=== PATIENT | female | born 1980 | race Caucasian/White ===

== ENCOUNTER → 2023-11-13 09:23 | Outpatient (CLI) | payer OTHER, SELFPAY ==
[2023-11-13 20:10] LABS: Add Manual Diff / Slide Review NO; Basophils Absolute Auto 0 /uL (0-100); Basophils Percent Auto 0.7 % (0-2); Eosinophils Absolute Auto 300 /uL (0-450); Eosinophils Percent Auto 4.3 % (2-4); Hematocrit 40.6 % (36-46); Hemoglobin 13.6 g/dL (12.0-16.0); Lymphocytes Absolute Auto 1500 /uL (1100-4500); Lymphocytes Percent Auto 21.8 % (25-40); Mean Corpuscular HGB Conc 33.5 % (30-36); Mean Corpuscular Hemoglobin 31.2 PG (26-34); Monocytes Absolute Auto 500 /uL (0-900); Monocytes Percent Auto 7.7 % (3-14); Neutrophils Absolute Auto 4500 /uL (1500-7000); Neutrophils Percent Auto 65.5 % (50-75); Platelet Count 292 X10^3/uL (150-400); Red Blood Cell Count 4.37 X10^6/uL (4.0-5.2); Red Cell Distribution Width 12.7 % (11.6-14.8); White Blood Cell Count 6.8 X10^3/uL (4.5-11.0)
[2023-11-13 20:16] LABS: HEMOLYSIS < 15 (0-50); Iron 111 ug/dL (37-170)
[2023-11-13 20:21] LABS: Alanine Aminotransferase 16 IU/L (<35); Albumin 4.1 g/dL (3.5-5.0); Albumin Globulin Ratio 1.4 (1.0-2.8); Alkaline Phosphatase 71 U/L (38-126); Aspartate Aminotransferase 28 IU/L (14-36); BUN Creatinine Ratio 22.2 (6-22); Bilirubin Total 0.7 mg/dL (0.2-1.3); Blood Urea Nitrogen 12 mg/dL (7-17); Carbon Dioxide 24 mmol/L (22-32); Chloride 104 mmol/L (98-107); Cholesterol 196 mg/dL (140-199); Estimated Glomerular Filt Rate > 60 mL/min (>60); Globulin 2.9 g/dL (1.7-4.1); Glucose 95 mg/dL (70-100); HDL Cholesterol 55 mg/dL (40-60); HEMOLYSIS 23 (0-50); LDL Cholesterol Calculated 124 mg/dL (<100); Potassium 4.3 mmol/L (3.4-5.1); Sodium 135 mmol/L (137-145); Triglycerides 87 mg/dL (35-150)
[2023-11-13 20:27] LABS: Percent Iron Saturation 40 % (15-50); Total Iron Binding Capacity 279 ug/dL (265-497); Transferrin 222 mg/dL (206-381)
[2023-11-13 20:50] LABS: TSH w/ Reflex to FT4 1.25 uIU/mL (0.47-4.68)
[2023-11-13 20:53] LABS: Ferritin 21 ng/mL (6-137)
== END ==
PROVIDERS: PCP Family Medicine; Visit Provider Family Medicine
DX: Z13.6 Encounter for screening for cardiovascular disorders (principal); Z13.1 Encounter for screening for diabetes mellitus; Z13.0 Encounter for screening for diseases of the blood and blood-forming organs and certain disorders involving the immune mechanism; N92.1 Excessive and frequent menstruation with irregular cycle; T78.40XA Allergy, unspecified, initial encounter
CPT/HCPCS: 80053; 80061; 82728; 83520; 83540; 83550; 84443; 85025

== ENCOUNTER → 2023-12-26 12:46 | Outpatient (CLI) | payer OTHER, SELFPAY ==
--- NOTE | 2023-12-26 12:48 | DI.MG.S_ITS ---
BILATERAL DIGITAL SCREENING MAMMOGRAM 3D/2D WITH CAD: 12/26/2023 CLINICAL: Routine screening. Baseline exam. No prior exams were available for comparison. Both breasts are heterogeneously dense, which may obscure small masses (category c / 51-75% glandular tissue). Current study was also evaluated with a Computer Aided Detection (CAD) system. No significant masses, calcifications, or other findings are seen in either breast. IMPRESSION: NEGATIVE There is no mammographic evidence of malignancy. A 1 year screening mammogram is recommended. Based on the Tyrer Cuzick model (a risk assessment model) the patient's lifetime risk is 14.7% and her 10 year risk is 2.7%. According to the ACR, ACS, and NCCN guidelines, an annual breast MRI exam along with mammogram is recommended if the patient's lifetime risk is 20% or greater. This exam was interpreted at Station ID: [id number]. NOTE: For mammograms, a report in lay terms will be sent to the patient. Approximately 15% of breast malignancies will not be visualized mammographically. In the management of a palpable breast mass, a negative mammogram must not discourage biopsy of a clinically suspicious lesion. Electronically Signed By: Kyara Benoit M.D., Ph.D. evita/roberta:12/26/2023 14:33:37 letter sent: Normal Exam ACR BI-RADS Category 1: Negative 3341F
--- NOTE | 2023-12-26 12:48 | DI.MRI.S_ITS ---
PROCEDURE: MR KNEE LT WO CON INDICATIONS: Persistent, chronic L knee pain and swelling TECHNIQUE: Noncontrast sagittal PD fast spin echo and T2 fast spin echo with fat saturation, sagittal 3-D FLASH with fat saturation; coronal T1 spin echo and PD fast spin echo with fat saturation, and axial PD fast spin echo with fat saturation through the knee. COMPARISON: [facility] [place], CR, XR KNEE 4+ VIEWS LEFT, 10/10/2023, 12:04. FINDINGS: Image quality: Excellent. Menisci: In the medial meniscus, there is intrasubstance degeneration of the meniscus body, with likely oblique tear. There is moderate extrusion of the medial meniscus body. The lateral meniscus is unremarkable. Cruciate ligaments: The anterior and posterior cruciate ligaments appear intact. Medial structures: The medial collateral ligament appears intact. The posterior oblique ligament, semimembranosus tendon insertions, oblique popliteal ligament, and meniscocapsular junction appear intact. Visualized portions of the pes anserinus tendons appear normal. No abnormal bursal fluid. Lateral structures: The lateral collateral ligament, long and short heads of the biceps femoris tendon appear intact. The popliteus tendon appears normal; the popliteofibular ligament appears intact. The posterosuperior and anteroinferior popliteomeniscal fascicles appear intact. The arcuate and fabellofibular ligaments appear intact, on either side of the lateral inferior geniculate artery. Iliotibial band appears normal. Anterior structures: The quadriceps and patellar tendons appear intact. Mild lateral tilt of the patella. Mild Hoffa's fat pad edema. Bones and cartilage: There is mild multi focal contour irregularity of the patella. Mild chondral irregularity of the medial trochlea with a small area of full thickness chondral defect in the lateral trochlea. In the medial compartment, there is full thickness chondral loss in the posterior weight-bearing portion of the femoral condyle. There is high-grade chondral loss in the anterior aspect of the nonweightbearing portion of the femoral condyle. In the lateral compartment, there is mild chondral irregularity of the weight-bearing portion of the femoral condyle. Mild subchondral cystic change and marrow edema at the tibial eminence, reactive . no acute fracture. Joint space: Small knee effusion. Trace popliteal cyst. Popliteal vasculature is unremarkable. No intra-articular body. IMPRESSION: 1. Intrasubstance degeneration of the medial meniscus body with likely oblique tear. Moderate extrusion of the medial meniscus body. 2. Moderate, medial compartment predominant chondrosis. 3. Small knee effusion. Dictated by: Evonne Jacobson M.D. on 12/26/2023 at 14:28 Approved by: Evonne Jacobson M.D. on 12/26/2023 at 14:39
== END ==
LOC: MRI 12:47
PROVIDERS: PCP Family Medicine; Referring Provider Family Medicine; Visit Provider Family Medicine
DX: Z12.31 Encounter for screening mammogram for malignant neoplasm of breast (principal); R92.333 Mammographic heterogeneous density, bilateral breasts; M25.562 Pain in left knee; M25.462 Effusion, left knee; M94.262 Chondromalacia, left knee
CPT/HCPCS: 73721; 77063; 77067